=== PATIENT | male | born 1955 | race Caucasian/White ===

== ENCOUNTER → 2018-08-22 | Outpatient (CLI) | payer MEDICAID | LOC: RADMRIMAIN 14:54 | PROVIDERS: ATTEND Internal Medicine | DX: M50.30 Other cervical disc degeneration, unspecified cervical region (principal) | CPT/HCPCS: 82565 ==

== ENCOUNTER → 2018-08-24 | Outpatient (CLI) | payer MEDICAID ==
--- NOTE | 2018-08-25 10:30 | MR ---
EXAMINATION TYPE: MR cervical spine wo/w con DATE OF EXAM: 08/24/2018 COMPARISON: CT cervical spine 12/31/2012 HISTORY: Neck Pain, Lack of Mobility, Previous Surgery 13 years ago Gadavist 10ml TECHNIQUE: Multiplanar, multisequence images of the cervical spine were acquired utilizing 10 mL intravenous Shin avist gadolinium contrast. Diffusion weighted imaging was performed. C2-C3: No significant spinal stenosis or sizable disc herniation. Mild right-sided foraminal encroach ment is present due to facet arthropathy and uncovertebral joint hypertrophy on the right. C3-C4: Uncovertebral joint hypertrophy and facet arthropathy results in foraminal encroachment bilate rally right greater than left. Posterior extension of endplate disc complex is results in moderate to severe central canal stenosis, there is minimal anterolisthesis grade 1 C3-4. C4-C5: Bilateral uncovertebral joint hypertrophy is noted, facet arthropathy somewhat worse on the ri ght resulting in bilateral foraminal encroachment. Posterior extension endplate disc complex causes m oderate central canal stenosis. C5-C6: There is obliteration of the disc space to the patient's fusion, no significant central stenos is or foraminal encroachment C6-C7: No significant central stenosis. There is some bilateral foraminal encroachment. No disc herni ation. C7-T1: No evidence for degenerative disc disease. No disc bulge/herniation or protrusion. No Canal stenosis. Foramina are patent bilaterally. Cervical segments are intact. Patient is status post anterior cervical fusion, discectomy at C5-C7, there is susceptibility artifact due to patient's hardware. There is near normal alignment. Cervical spinal cord show some increased signal on T2-weighted sequences to the left of midline at C3-4 axial image 37, corresponding low signal on T1-weighted images. Craniovertebral junction relationships ar e within normal limits. No abnormal enhancement following contrast administration. 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 Postop changes. There is multilevel foraminal encroachment . Spinal stenosis present C3-4, C4-5.
== END | disposition home or self-care (01) ==
LOC: RADMRIMAIN 09:35
PROVIDERS: ATTEND Internal Medicine
DX: M48.02 Spinal stenosis, cervical region (principal); G95.89 Other specified diseases of spinal cord; Z98.890 Other specified postprocedural states
CPT/HCPCS: 72156; A9585

== ENCOUNTER → 2019-01-15 | Outpatient (CLI) | payer MEDICARE, BC, OTHER ==
--- NOTE | 2019-01-15 14:15 | XR ---
EXAMINATION TYPE: XR cervical spine limited DATE OF EXAM: 01/15/2019 TECHNIQUE: Frontal, lateral, and open mouth view of the cervical spine are obtained. HISTORY: M48.02 COMPARISON: MRI cervical spine August 24, 2018 FINDINGS: The cervical spine is visualized in its entirety from C1 thru the inferior C7 level, it is stable and satisfactory in alignment without evidence of acute fracture or dislocation. The pre-dmitri tebral soft tissue show some prominence perhaps mildly thickened up to 22 mm at C6 level. The C1-C2 articulation shows redemonstrates asymmetric left-sided narrowing on open mouth view. There is new an terior fusion plate C3-C5 levels. Artificial disc material at these levels is now present. There is p ersistent artificial disc material C5-C6 and C6-C7 level with some ossific fusion. Interval removal a nterior fusion plate is noted. IMPRESSION: As above.
== END | disposition home or self-care (01) ==
LOC: RADXRMAIN 13:44
DX: M48.02 Spinal stenosis, cervical region (principal); M43.22 Fusion of spine, cervical region
CPT/HCPCS: 72040

== ENCOUNTER → 2019-05-08 | Outpatient (CLI) | payer MEDICARE, BC ==
--- NOTE | 2019-05-08 14:23 | CT ---
EXAMINATION TYPE: CT abdomen pelvis wo con DATE OF EXAM: 05/08/2019 COMPARISON: 05/08/2019 earlier exam INDICATION: right flank pain DLP: 480880 mGycm, Automated exposure control for dose reduction was used. CONTRAST: 0 mL of Isovue 300. Study performed with Oral Contrast TECHNIQUE: Axial images were obtained from above the diaphragm to the pubic rami in the axial plane a t 5 mm thick sections. Reconstructed images are reviewed on the computer in the coronal plane. FINDINGS: Limited CT sections are obtained the lung bases. The lung bases are clear. CT ABDOMEN: Liver: Normal Spleen: Normal Pancreas: Normal Adrenal glands: The adrenal glands are normal. Gallbladder: Normal Kidneys: No masses are evident. No hydronephrosis is present. No cysts are present. Delayed images were obtained through the kidneys, which remain unremarkable. There is a 0.5 cm distal right uretera l stone. Mild left hydronephrosis is present. Aorta: Vascular calcification is within the aorta. Inferior vena cava: Normal. CT PELVIS: Loops of bowel within the abdomen and pelvis are normal. There are loops of bowel which are incom pletely distended or lack oral contrast limiting their evaluation. Appendix: Not identified. No suspicious tubular structures or inflammatory changes are evident. Urinary bladder: There is thickening in the urinary bladder wall. There is incomplete distention. Genitourinary structures: Prostate is mildly prominent. Osseous structures: No suspicious lytic or sclerotic lesions. IMPRESSIONS: 1. A distal right nonobstructing ureteral stone measuring 0.5 cm felt to be present. 2. Mild fecal retention
--- NOTE | 2019-05-08 14:53 | CT ---
EXAMINATION TYPE: CT ChestAbdPelvis w con DATE OF EXAM: 05/08/2019 INDICATION: RUQ pain, pleurodynia COMPARISON: 05/08/2019 CT DLP: 1643.83 mGycm CONTRAST: Performed with Oral Contrast and with IV Contrast, patient injected with 100 mL of Isovue 300. TECHNIQUE: Axial images at 5 mm thick sections. Reconstructed images in the coronal plane. Delayed images through the kidneys. FINDINGS: CT CHEST: Portion of the thyroid visualized is normal. No suspicious lung nodules or focal infiltrates are present. No enlarged mediastinal or hilar adenopathy is evident. The ascending aorta diameter at the level of the main pulmonary artery is 3.8 cm. The main pulmonary artery diameter at the bifurcation is 2.[address] ABDOMEN: Liver: Normal Spleen: Normal Pancreas: Normal Adrenal glands: The adrenal glands are normal. Gallbladder: Normal Kidneys: No masses are evident. No hydronephrosis is present. No cysts are present. Delayed images were obtained through the kidneys, which remain unremarkable. Aorta: Vascular calcification is within the aorta. Inferior vena cava: Normal. CT PELVIS: Loops of bowel within the abdomen and pelvis are normal. There are some loops of bowel is limited contrast limiting their evaluation. Mild fecal retention is present. Appendix: Normal as visualized and extending towards the midline.. Urinary bladder: There is thickening of the urinary bladder wall. There is incomplete distention Genitourinary structures: Prostate is somewhat prominent. Osseous structures: No suspicious lytic or sclerotic lesions. IMPRESSIONS: 1. Mild fecal retention. 2. There may be a distal right ureteral stone measuring 0.5 cm.
== END | disposition home or self-care (01) ==
LOC: RADCTMAIN 07:30
PROVIDERS: ATTEND Internal Medicine
DX: N20.1 Calculus of ureter (principal); K59.00 Constipation, unspecified
CPT/HCPCS: 82565; 84520; 71260; 74176; 74177; Q9967 ×2

== ENCOUNTER → 2019-05-21 | Outpatient (CLI) | payer MEDICARE, BC ==
--- NOTE | 2019-05-21 14:37 | MR ---
EXAMINATION TYPE: MR lumbar spine wo con DATE OF EXAM: 05/21/2019 COMPARISON: CT of the chest, abdomen, and pelvis dated 05/08/2019 HISTORY: Low back pain TECHNIQUE: Multiplanar, multisequence images of the lumbar spine were acquired. Osseous findings: The lumbar spine vertebral bodies maintain normal vertebral body heights and alignm ent. Bone marrow signal is overall within normal limits. There is minimal retrolisthesis of L5 on S1. Multilevel disc desiccation is noted. Conus medullaris is unremarkable terminating at L1-L2. L1-L2: Disc desiccation is seen without spinal canal stenosis or neural foraminal narrowing. L2-L3: There is a broad-based disc bulge and pronounced right facet arthropathy resulting in moderate right neural foraminal narrowing and mild left neural foraminal narrowing. Disc bulges right eccentr ic. Ligamentum flavum buckling is also seen. There is some impression on the posterior thecal sac and mild spinal canal stenosis created by the pronounced right facet arthropathy and focal ligamentum fl avum buckling. L3-L4: Mild facet arthropathy and mild ligamentum flavum buckling as well as a broad-based disc bulge resulting in mild bilateral neural foraminal narrowing without spinal canal stenosis. L4-L5: Broad-based disc bulge, ligamentum flavum buckling, and facet arthropathy contribute to modera te spinal canal stenosis and moderate to severe left neural foraminal narrowing as well as moderate r ight neural foraminal narrowing. Pronounced facet arthropathy abuts the exiting L4 nerve root on the left in the neural foramen. L5-S1: There is a very small central disc herniation and broad-based disc bulge as well as facet arth ropathy resulting in moderate bilateral neural foraminal narrowing without spinal canal stenosis. IMPRESSION: 1. Severe facet arthropathy on the right at L2-L3 and bilaterally at L4-5 with ligamentum flavum fischer ling and broad-based disc bulges contributing to moderate spinal canal stenosis at L4-L5 and mild spi nal canal stenosis at L2-L3. There is also moderate to severe left neural foraminal narrowing at L4-L 5 with the pronounced facet arthropathy contacting the exiting L4 nerve root. Variable degrees of sophy ral foraminal narrowing age level are detailed above. 2. Very small central disc herniation at L5-S1 without spinal canal stenosis. 3. Mild retrolisthesis of L5 on S1.
== END ==
LOC: RADMRIMAIN 10:59
PROVIDERS: ATTEND Orthopaedic Surgery
DX: M48.061 Spinal stenosis, lumbar region without neurogenic claudication (principal); M51.27 Other intervertebral disc displacement, lumbosacral region; M51.26 Other intervertebral disc displacement, lumbar region; M43.17 Spondylolisthesis, lumbosacral region; M43.16 Spondylolisthesis, lumbar region; M46.96 Unspecified inflammatory spondylopathy, lumbar region
CPT/HCPCS: 72148

== ENCOUNTER → 2019-05-29 | Outpatient (CLI) | payer MEDICARE, BC ==
[2019-05-29 08:45] VITALS: BP 123/79; PULSE 59; RESP 16
--- NOTE | 2019-05-29 09:11 | P.PAINCN ---
History of Present Illness - Reason for Consult Consult date: 05/29/19 - History of Present Illness this is the initial consultation visit for this 64 years old male, with a chronic history of severe low back pain with radiation to the right hip ,and right lower extremity, associated with numbness and tingling sensation, the symptoms started 10 years ago while he was playing tennis, he continued to have symptoms that the intensity of the pain increased over the last few months, he denies any change in the more movement or urination, he denies any fever or night sweats , he denies any motor deficit, he is able to ambulate freely, also patient had neck pain problem and he had cervical fusion surgery 2, but currently most of his problem is that the low back area Past Medical History Past Medical History: Hypertension Additional Past Medical History / Comment(s): gout,rt kidney stone,steroid injection May 2019 History of Any Multi-Drug Resistant Organisms: None Reported Past Surgical History: Orthopedic Surgery Additional Past Surgical History / Comment(s): cervical fusion x2 and wrist Past Anesthesia/Blood Transfusion Reactions: No Reported Reaction Smoking Status: Former smoker - Past Family History Mother Family Medical History: No Reported History Sister(s) Family Medical History: Cancer Additional Family Medical History / Comment(s): small cell lung CA Medications and Allergies Home Medications Medication Instructions Recorded Confirmed Type HYDROcodone/APAP 10-325MG [[place] 1 tab PO TID PRN 05/27/19 05/27/19 History 10-325] Indomethacin 50 mg PO DAILY PRN 05/27/19 05/27/19 History Irbesartan [Avapro] 150 mg PO DAILY 05/27/19 05/27/19 History Allergies Allergy/AdvReac Type Severity Reaction Status Date / Time No Known Allergies Allergy Unverified 05/27/19 14:55 Physical Exam Vitals: Vital Signs Pulse Resp BP Pulse Ox 05/29/19 08:36 59 L 16 123/79 98 REVIEW OF ORGAN SYSTEMS: CONSTITUTIONAL: No fevers or chills. No recent weight loss. EYES: no History of troubles with vision. No glasses. HEENT: No difficulties with hearing. No nosebleeds. No difficulty swallowing. RESPIRATORY: Past pneumonia. Denies any troubles with breathing or dyspnea on exertion. CARDIOVASCULAR: Denies any chest pain, palpitations, or recent heart attacks. GASTROINTESTINAL: Denies fatty food intolerance. Has change in bowel habits and gas bloat. GENITOURINARY: Denies any blood in urine. Has increased urinary frequency. NEUROLOGICAL: numbness and tingling along the right lower extremity. No seizure disorders or headaches. MUSCULOSKELETAL: Has back pain. SKIN: Past t skin cancer. No rash. PSYCHIATRIC: Denies current depression or suicidal thoughts. ENDOCRINE: Denies current thyroid disorders. Denies any blood sugar glucose intolerance. HEME/LYMPHATIC: Denies any lumps and bumps around the neck. History of deep venous thrombosis. ALLERGY/IMMUNOLOGY: No immunoglobulin therapy. No immune deficiencies. BREAST: Denies current breast lumps, pain or nipple discharge. Physical Examinations : Constitutiona : Cooperative , not in acute distress . HEENT : nech : supple , no Lymphadenopathy , normal thyroid size . eyes : no ptosis , no icterus, no photophobia . ENT : normal of hearing , normal oropharynx , no Thrush . neurologic : Cranial nerve II to XII intact , no focal neurological deffecit . psychatric : alert , oriented X 3 , appropriate affect , intact judgment and insight . Lymphatic : no Lymphadenopathy . musculoskeltal : Cervical Spine motor stregnth in the deltoid and biceps, normal right side , normal Left side motor stregnth biceps and the wrist extensors normal right side ,normal left side . motor stregnth in the triceps muscle . normal Right side , normal Left side Lumber spine moter stegnth lower extremities ,thigh and legs 5/5 Right side , 5/5 Left side Positive paresthesia right lower extremity(L3 ,4 ,5 dermatomal distribution ) deep tendon reflexes : normal Knee Jerk , normal ankle Jerk lumber facet Loading Test = negative bilaterally Range of motion of the lumbar spine Flexion 30 degrees, extension 10 degrees strait leg raising test = negative bilaterally Fabere test negative bilaterally. Results Comments: MRI of the lumbar spine done on 05/21/2019 at [facility]= multilevel lumbar facet arthropathy and spinal canal stenosis at L4 5 and disc herniation at L5-S1, Assessment and Plan Plan: Assessment and plan=1 lumbar radiculopathy. 2-lumbar herniated disc disease. 3- lumbar spondylosis with lumbar facet arthropathy. Patient could benefit from lumbar epidural steroid injection under fluoroscopy guidance right-sided paramedian approach At L4 5 or L5-S1 . 2-postlaminectomy pain syndrome and cervical area. Patient should continue to use his pain medication [place] 10/325 and is getting prescription refills from his primary care Time with Patient: Greater than 30 PQRS Measure Charge Sheet Measure #130: Documentation of Current Meds in Medical Chart: Patient's m edications documented in chart Measure #226: Tobacco Use: Screen & Cessation Intervention: Pt not a tobacco user Measure #111: Pneumonia Vaccination: Pneumococcal vaccine NOT administered or previously given Measure #47: Advance Care Plan: Advance care planning discussed & documented, pt chose/unable to give Measure #412: Opioid Treatment Agreement: No documentation of signed opioid treatment agreement Measure #408: Opioid Therapy Follow-up Evaluation: Patient had NO f/u eval minimum every 3 months during opioid therapy Measure #317: Preventitive Care & Scrn High Bld Press & F/U: Normal blood pressure, f/u not required Measure #128: Body Mass Index (BMI) Screening & Follow-up: BMI documented ABOVE normal parameters - f/u documented Measure #131: Pain Assessment & Follow-up: Pain positive & plan documented, Follow-up scheduled Measure #431: Unhealthy Alcohol Use Preventative Care & Scrn: Patient not identified as an unhealthy alcohol user PQRS Narrative: Smoking Status Former smoker Blood Pressure 123/79 Pain Intensity [Back] 3 Scale Used Numeric (1 - 10) Hx Alcohol Use (MH) Yes Home Medications: Ambulatory Orders HYDROcodone/APAP 10-325MG [[place] 10-325] 1 tab PO TID PRN 05/27/19 Indomethacin 50 mg PO DAILY PRN 05/27/19 Irbesartan [Avapro] 150 mg PO DAILY 05/27/19
== END | disposition home or self-care (01) ==
LOC: PNWHC3 08:27
PROVIDERS: ATTEND Specialist
DX: M51.16 Intervertebral disc disorders with radiculopathy, lumbar region (principal); M46.96 Unspecified inflammatory spondylopathy, lumbar region; M96.1 Postlaminectomy syndrome, not elsewhere classified; Z79.891 Long term (current) use of opiate analgesic; Z87.891 Personal history of nicotine dependence; Z79.899 Other long term (current) drug therapy
CPT/HCPCS: 99211

== ENCOUNTER 2019-06-09 08:31 | Day surgery (SDC) | payer MEDICARE, BC ==
[2019-06-05 12:44] VITALS: BMI 28.8
[~2019-06-09 08:31] MED LIST: LACTATED RINGERS 1,000 ML IV SCH
[2019-06-09 08:50] VITALS: TEMP 98.2
[2019-06-09] MEDS ORDERED: LIDOCAINE 1% 20 ML VIAL (10MG/ML) FOR IV START INTRADERMA ONE (08:55)
--- NOTE | 2019-06-09 09:40 | P.PCN ---
Date of Procedure: 06/09/19 Procedure(s) Performed: PREOPERATIVE DIAGNOSIS: 1- Lumbar Herniated Disc Diseases 2-Lumbar spondylosis with Facet arthropathy without myelopathy. 3-lumbar radiculopathy. POSTOPERATIVE DIAGNOSIS: 1-Lumber herniated Disc Diseases 2-Lumbar spondylosis with Facet arthropathy without myelopathy 3-lumbar radiculopathy PROCEDURE 1. Lumbar epidural steroid injection under fluoroscopic guidance at the L5-S1 level.( Rt paramedian approach ) (Fluoroscopy imaging was available in radiology department) 2. Lumbar epidurogram. ANESTHESIA: Local with 1% lidocaine 3 ml and , moderate sedation with intravenous Versed 1 mg ,and fentanyle 50 Mcg EBL: Minimal PROCEDURE INDICATION: The patient with low back pain and radiculitis symptoms unresponsive to conservative treatment. Fluoroscopy was used to optimize visualization of the needle placement and to maximize safety. PROCEDURE DESCRIPTION / TECHNIQUE: The patient was seen and identified in the preoperative area. Risks, benefits, complications including but not limited to infections ,bleeding ,allergic reaction to the medications ,nerve damage and not complete pain releife , and alternatives were discussed with the patient. The patient agreed to proceed with the procedure and signed the consent. IV was started, and vital signs were stable. Patient was taken to the OR and time out was completed. The patient was placed in the prone position on procedure table and a pillow was placed under the abdomen to reduce lumbar lordosis. The lumbosacral area was prepped and draped in the usual sterile fashion.ere closely monitored during the procedure. Conscious sedation was used during the procedure to decrease patients anxiety. Vital signs was monitered during the entire procedure. Using anterior-posterior fluoroscopy, the L5-S1 interlaminar space was identified and the skin over this site was marked and then infiltrated with 1% lidocaine subcutaneously. Subsequently, a 20-gauge Tuohy epidural needle was inserted and advanced toward the epidural space using the ``Loss of resistance technique and guided by AP and lateral fluoroscopy. The correct needle position in the epidural space was verified with the injection of 2 mL of the water soluble contrast dye Isovue 200 contrast and observing an excellent epidurogram with the epidural spread of the dye, after negative aspiration for blood and CSF and in the absence of paresthesias. Again after negative aspiration, a 6 ml mixture containing 80 mg of Depo-medrol , and 2 ml of preservative free Normal Saline, and 2 ml of preservative free lidocaine 1% solution was injected and a washout of epidurogram was seen. Needle was withdrawn intact, skin was cleansed, and bandages were applied. COMPLICATIONS: None DISPOSITION / PLANS: The patient was placed in a supine position and transferred to the recovery area in a stable condition for observation. There was no evidence of lower extremity motor or sensory deficit after the procedure. Patient was discharged from the recovery room after meeting discharge criteria. Home discharge instructions were given to the patient by the staff. The patient was reexamined prior to discharge. The patient will schedule a follow up in the clinic in 2-4 weeks.
[2019-06-09] MEDS ORDERED: IV FLUID CONTINUATION 1,000 ML IV ONE ×2 (09:50)
[2019-06-09 09:53] VITALS: RESP 18
--- NOTE | 2019-06-09 10:08 | FL ---
Fluoroscopy HISTORY: Pain 3 seconds fluoroscopy time supplied to the referring clinician. 1 intraoperative C-arm images docume nt the procedure. See dictated report from anesthesia.
[2019-06-09 10:24] VITALS: BP 120/75; PULSE 50
== END 2019-06-09 10:30 | disposition home or self-care (01) ==
LOC: ORPAIN 08:31
PROVIDERS: ATTEND Specialist
DX: M47.26 Other spondylosis with radiculopathy, lumbar region (principal); M51.16 Intervertebral disc disorders with radiculopathy, lumbar region; Z98.890 Other specified postprocedural states
CPT/HCPCS: 62323; J2250; J1030; J3010; Q9966

== ENCOUNTER 2019-06-23 07:31 | Day surgery (SDC) | payer MEDICARE, BC ==
[2019-06-20 10:55] VITALS: BMI 28.8
[2019-06-23 07:49] VITALS: RESP 16; TEMP 97.2
--- NOTE | 2019-06-23 08:24 | P.PCN ---
Date of Procedure: 06/23/19 Procedure(s) Performed: PREOPERATIVE DIAGNOSIS: 1- Lumbar Herniated Disc Diseases 2-Lumbar spondylosis with Facet arthropathy without myelopathy. 3-lumbar radiculopathy. POSTOPERATIVE DIAGNOSIS: 1-Lumber herniated Disc Diseases 2-Lumbar spondylosis with Facet arthropathy without myelopathy 3-lumbar radiculopathy PROCEDURE 1. Lumbar epidural steroid injection under fluoroscopic guidance at the L5-S1 level. (Fluoroscopy imaging was available in radiology department) 2. Lumbar epidurogram. ANESTHESIA: Local with 1% lidocaine 3 ml and , moderate sedation with intravenous Versed 1 mg ,and fentanyle 50 Mcg EBL: Minimal PROCEDURE INDICATION: The patient with low back pain and radiculitis symptoms unresponsive to conservative treatment. Fluoroscopy was used to optimize visualization of the needle placement and to maximize safety. PROCEDURE DESCRIPTION / TECHNIQUE: The patient was seen and identified in the preoperative area. Risks, benefits, complications including but not limited to infections ,bleeding ,allergic reaction to the medications ,nerve damage and not complete pain releife , and alternatives were discussed with the patient. The patient agreed to proceed with the procedure and signed the consent. IV was started, and vital signs were stable. Patient was taken to the OR and time out was completed. The patient was placed in the prone position on procedure table and a pillow was placed under the abdomen to reduce lumbar lordosis. The lumbosacral area was prepped and draped in the usual sterile fashion.ere closely monitored during the procedure. Conscious sedation was used during the procedure to decrease patients anxiety. Vital signs was monitered during the entire procedure. Using anterior-posterior fluoroscopy, the L5-S1 interlaminar space was identified and the skin over this site was marked and then infiltrated with 1% lidocaine subcutaneously. Subsequently, a 20-gauge Tuohy epidural needle was inserted and advanced toward the epidural space using the ``Loss of resistance technique and guided by AP and lateral fluoroscopy. The correct needle position in the epidural space was verified with the injection of 2 mL of the water soluble contrast dye Isovue 200 contrast and observing an excellent epidurogram with the epidural spread of the dye, after negative aspiration for blood and CSF and in the absence of paresthesias. Again after negative aspiration, a 6 ml mixture containing 80 mg of Depo-medrol , and 2 ml of preservative free Normal Saline, and 2 ml of preservative free lidocaine 1% solution was injected and a washout of epidurogram was seen. Needle was withdrawn intact, skin was cleansed, and bandages were applied. COMPLICATIONS: None DISPOSITION / PLANS: The patient was placed in a supine position and transferred to the recovery area in a stable condition for observation. There was no evidence of lower extremity motor or sensory deficit after the procedure. Patient was discharged from the recovery room after meeting discharge criteria. Home discharge instructions were given to the patient by the staff. The patient was reexamined prior to discharge. The patient will schedule a follow up in the clinic in 2-4 weeks.
--- NOTE | 2019-06-23 08:35 | FL ---
EXAMINATION TYPE: FL guided pain mgmt statistic DATE OF EXAM: 06/23/2019 HISTORY: Pain LUMBAR EPIDURAL, 2 SEC FL, DR. LARA
[2019-06-23 08:45] VITALS: BP 129/78; PULSE 60
[2019-06-23] MEDS ORDERED: IV FLUID CONTINUATION 1,000 ML IV ONE (08:48)
== END 2019-06-23 09:19 | disposition home or self-care (01) ==
LOC: ORPAIN 07:31
PROVIDERS: ATTEND Specialist
DX: M51.16 Intervertebral disc disorders with radiculopathy, lumbar region (principal); M47.26 Other spondylosis with radiculopathy, lumbar region; M40.46 Postural lordosis, lumbar region
CPT/HCPCS: 62323; J2250; J1030; J3010; Q9966

== ENCOUNTER → 2019-07-08 | Outpatient (CLI) | payer MEDICARE, BC ==
[2019-07-08 13:51] VITALS: BP 150/82; PULSE 66; RESP 18
--- NOTE | 2019-07-09 13:56 | P.PAINPG ---
Subjective Progress Note Date: 07/08/19 This is a follow-up visit for this 64 years old male with a chronic history of low back pain is diagnosed with lumbar radiculopathy lumbar herniated disc disease, and lumbar spondylosis with lumbar facet arthropathy, status post lumbar epidural steroid injections 2, patient reported that his low back pain improved significantly after the procedure, and currently is complaining of severe midback pain, which is increasing in intensity over the last few weeks, the pain is constant and increases with any movement, interfering with the quality of life, he denies any motor or sensory deficit he denies any fever or night sweats and there is no change in the bowel movement or urination Objective - Vital Signs Vital signs: Vital Signs Temp Pulse 66 07/08/19 13:41 Resp 18 07/08/19 13:41 BP 150/82 07/08/19 13:41 Pulse Ox 99 07/08/19 13:41 Intake & Output 07/08/19 07/09/19 07/09/19 18:59 06:59 18:59 Weight 86.636 kg - Exam Physical Examinations : -Constitutiona : Cooperative , not in acute distress . -HEENT : nech : supple , no Lymphadenopathy , normal thyroid size . : eyes : no ptosis , no icterus, no photophobia . : ENT : normal of hearing , normal oropharynx , no Thrush . - Respiratory : Chest clear to auscultations Bilaterally , no wheezing , no Rhonchi . - Cardiovascula : regular rate and rhythem , S1 , S2 , no S3 , no S4. - Gastrointestina : abdomen soft no tenderness , bowel sounds , no organomegally . - Genitourinary : Defferred . - neurologic : Cranial nerve II to XII intact , no focal neurological deffecit . -psychatric : alert , oriented X 3 , appropriate affect , intact judgment and insight . -Lymphatic : no Lymphadenopathy . - musculoskeltal : Cervical Spine motor stregnth in the deltoid and biceps, normal right side , normal Left side motor stregnth biceps and the wrist extensors normal right side ,normal left side . motor stregnth in the triceps muscle . normal Right side , normal Left side Thoracic spine= flexion and extension and lateral rotation of the torso associated with severe pain Facet loading test positive bilaterally thoracic area from T78 to T12 Lumber spine moter stegnth lower extremities ,thigh and legs 5/5 Right side , 5/5 Left side Assessment and Plan Plan: Assessment and plan= lumbar radiculopathy, lumbar herniated disc disease, lumbar spondylosis pain improved after lumbar epidural steroid injection. 2.mid Back pain secondary to THORACIC spondylosis versus thoracic herniated disc disease, we will order a thoracic spine MRI To identify the etiology,, patient will follow up in the pain clinic in 1-2 weeks(after we get the MRI report ) Time with Patient: Less than 30 PQRS Measure Charge Sheet Measure #130: Documentation of Current Meds in Medical Chart: Patient's medications documented in chart Measure #226: Tobacco Use: Screen & Cessation Intervention: Pt not a tobacco user Measure #111: Pneumonia Vaccination: Pneumococcal vaccine NOT administered or previously given Measure #47: Advance Care Plan: Advance care planning discussed & documented, pt chose/unable to give Measure #412: Opioid Treatment Agreement: No documentation of signed opioid treatment agreement Measure #408: Opioid Therapy Follow-up Evaluation: Patient had NO f/u eval minimum every 3 months during opioid therapy Measure #317: Preventitive Care & Scrn High Bld Press & F/U: Pre-hypertensive or hypertensive BP documented, pt will f/u with PCP Measure #128: Body Mass Index (BMI) Screening & Follow-up: BMI documented ABOVE normal parameters - f/u documented Measure #131: Pain Assessment & Follow-up: Pain positive & plan documented, Follow-up scheduled Measure #431: Unhealthy Alcohol Use Preventative Care & Scrn: Patient not identified as an unhealthy alcohol user PQRS Narrative: Smoking Status Former smoker Blood Pressure 150/82 Pain Intensity [Right Lower 1 Back] Pain Intensity [Bilateral 4 Upper Back] Pain Intensity [None] 0 Scale Used Numeric (1 - 10) Hx Alcohol Use (MH) Yes Home Medications: Ambulatory Orders HYDROcodone/APAP 10-325MG [[place] 10-325] 1 tab PO TID PRN 05/27/19 Indomethacin 50 mg PO DAILY PRN 05/27/19 Irbesartan [Avapro] 150 mg PO DAILY 05/27/19 Controlled Substance Measures - Controlled Substance Measures Is patient prescribed a controlled substance at discharge?: No
== END | disposition home or self-care (01) ==
LOC: PNWHC3 13:11
PROVIDERS: ATTEND Specialist
DX: G89.29 Other chronic pain (principal); M51.16 Intervertebral disc disorders with radiculopathy, lumbar region; M47.26 Other spondylosis with radiculopathy, lumbar region; M46.96 Unspecified inflammatory spondylopathy, lumbar region; Z87.891 Personal history of nicotine dependence; Z79.899 Other long term (current) drug therapy
CPT/HCPCS: 99211

== ENCOUNTER → 2019-07-22 | Outpatient (CLI) | payer MEDICARE, BC ==
--- NOTE | 2019-07-22 09:04 | MR ---
EXAMINATION TYPE: MR thoracic spine wo con DATE OF EXAM: 07/22/2019 7:56 AM COMPARISON: CT thoracic spine 12/31/2012 HISTORY: Thoracic spondylosis Multiplanar MultiSpin echo imaging of the thoracic spine was performed. Disc spaces: Mild disc desiccation extending from T4-5 through T9-T10. Posterior disc bulge greatest at T6-7 and T7-8 with mild effacement of the ventral thecal sac at each level. No evidence for drew disc herniation or central stenosis. No cord contact identified. Spinal canal: No evidence for canal stenosis. No intrinsic or extrinsic lesion. Thoracic spinal cord: Thoracic spinal cord is of normal caliber and signal. Paraspinal soft tissues: No evidence for paraspinal mass. No destructive lesions seen. Vertebral segments: No evidence for acute fracture or bony lesion. Incidental T11 hemangioma. Minimal loss of height of T4 compatible with the previous fracture noted in 2012. Appropriate healing noted. IMPRESSION: 1. Multilevel degenerative disc disease with disc bulging as discussed above. No evidence for herniat ion or central stenosis. Thoracic spinal cord is of normal signal.
== END | disposition home or self-care (01) ==
LOC: RADMRIMAIN 07:02
PROVIDERS: ATTEND Specialist
DX: M51.84 Other intervertebral disc disorders, thoracic region (principal); M51.34 Other intervertebral disc degeneration, thoracic region
CPT/HCPCS: 72146

== ENCOUNTER → 2019-07-31 | Outpatient (CLI) | payer MEDICARE, BC ==
[2019-07-31 14:30] VITALS: BP 151/90; PULSE 62; RESP 16
--- NOTE | 2019-07-31 21:34 | P.PAINPG ---
Subjective Progress Note Date: 07/31/19 This is a follow-up visit for this 64 year old male with a chronic history of low back pain is diagnosed with lumbar radiculopathy lumbar herniated disc disease, and lumbar spondylosis with lumbar facet arthropathy, status post lumbar epidural steroid injections 2, patient reported that his low back pain improved after the procedure, and at last visit, he was complaining of midback pain, radiating to bilateral chest wall which began after he was on a hunting trip and transported a heavy deer in the snow by himself; he underwent a thoracic MRI, results below. He is here for followup. Today, he reports his mid- back pain is rated at 3/10; he also complains of RLE numbness and tingling, which he thinks is worsening. He also has RUE numbness, which has been present for a long time; since his cervical spine fusion surgery. He has not been on any neuropathic agents in the past; currently taking low dose narcotics prescribed by PCP. He reports good benefit from these medications and they are helping him function. Denies side effects. He has recently starting doing aquatherapy with good benefit and also continues to do home exercises. He is leaving next week to [place] with his for 3 months. ROS is negative for new onset weakness, bowel/bladder dysfunction, suicidal or homicidal ideation, chest pain, SOB, fevers, chills, night sweats. Objective Vitals reviewed in EMR - Exam Physical Examinations : -Constitutional : Cooperative , not in acute distress . -HEENT : neck : supple , no Lymphadenopathy , normal thyroid size . : eyes : no ptosis , no icterus, no photophobia . : ENT : normal of hearing , normal oropharynx - Respiratory : no wheezing - Cardiovascular : no pedal edema - Gastrointestinal : abdomen non-distended - Genitourinary : Deferred . - neurological : Cranial nerve II to XII intact , no focal neurological deficit . -psychiatric : alert , oriented X 3 , appropriate affect , intact judgment and insight . - musculoskeltal : Cervical Spine motor strength in the deltoid and biceps, normal right side , normal Left side motor strength biceps and the wrist extensors normal right side ,normal left side . motor strength in the triceps muscle . normal Right side , normal Left side Thoracic spine= flexion and extension and lateral rotation of the torso associated with pain Facet loading test positive bilaterally thoracic area from T8 to T12 with TTP in this area Lumber spine motor strength lower extremities ,thigh and legs 5/5 Right side , 5/5 Left side Sensation reduced to light touch diffusely in RLE MRI thoracic spine done at [facility] on 07/22/2019 shows mild disc dessication from T4-5 through T9-10. Posterior disc bulge greatest at T6-7 and T7-8 with no central canal stenosis. Minimal height loss of T4 d/t old Fx, well healed. Assessment and Plan Plan: Assessment and plan= 1. lumbar radiculopathy, lumbar herniated disc disease, lumbar spondylosis pain improved after lumbar epidural steroid injection, with residual sensory deficit in RLE. 2.mid Back pain secondary to THORACIC spondylosis, mild thoracic degenerative disc disease 3. History of C spine fusion We had a lengthy discussion regarding possible treatment options including medications, pain procedures and surgery. He is not interested in surgery at this time. I believe he would benefit from a neuropathic agent such as gabapentin given his multiple sensory complaints. As he has a narcotic agreement with his PCP, I asked him to have a discussion with his PCP regarding gabapentin. Would recommend starting at 300mg daily and increasing to TID over 2-3 weeks. Further dose increase would be warranted if good benefit form this dose. I encouraged continued aquatherapy and exercises. Follow up: PRN. If thoracic pain persists, he was instructed to call our clinic when he returns from [place] and we could consider thoracic facet workup. I also informed him that if PCP unable to prescribe gabapentin, I would be willing to prescribe it for him. Time with Patient: Less than 30 PQRS Measure Charge Sheet Measure #130: Documentation of Current Meds in Medical Chart: Patient's medications documented in chart Measure #226: Tobacco Use: Screen & Cessation Intervention: Pt not a tobacco user Measure #111: Pneumonia Vaccination: Pneumococcal vaccine NOT administered or previously given Measure #47: Advance Care Plan: Advance care planning discussed & documented, pt chose/unable to give Measure #412: Opioid Treatment Agreement: No documentation of signed opioid treatment agreement Measure #408: Opioid Therapy Follow-up Evaluation: Patient had NO f/u eval minimum every 3 months during opioid therapy Measure #317: Preventitive Care & Scrn High Bld Press & F/U: Pre-hypertensive or hypertensive BP documented, pt will f/u with PCP Measure #128: Body Mass Index (BMI) Screening & Follow-up: BMI documented within normal parameters Measure #131: Pain Assessment & Follow-up: Pain positive & plan documented, Follow-up as needed Measure #431: Unhealthy Alcohol Use Preventative Care & Scrn: Patient not identified as an unhealthy alcohol user Objective - Vital Signs Vital signs: Vital Signs Temp Pulse 62 07/31/19 14:17 Resp 16 07/31/19 14:17 BP 151/90 07/31/19 14:17 Pulse Ox 97 07/31/19 14:17 PQRS Measure Charge Sheet PQRS Narrative: Smoking Status Former smoker Blood Pressure 151/90 Pain Intensity [Back] 2 Scale Used Numeric (1 - 10) Hx Alcohol Use (MH) Yes Home Medications: Ambulatory Orders HYDROcodone/APAP 10-325MG [[place] 10-325] 1 tab PO TID PRN 05/27/19 Indomethacin 50 mg PO DAILY PRN 05/27/19 Irbesartan [Avapro] 150 mg PO DAILY 05/27/19 Tamsulosin [Flomax] 0.4 mg PO DAILY 07/29/19 Controlled Substance Measures - Controlled Substance Measures Is patient prescribed a controlled substance at discharge?: No
== END | disposition home or self-care (01) ==
LOC: PNWHC3 13:35
PROVIDERS: ATTEND Anesthesiology
DX: G89.29 Other chronic pain (principal); M51.26 Other intervertebral disc displacement, lumbar region; M47.26 Other spondylosis with radiculopathy, lumbar region; M46.96 Unspecified inflammatory spondylopathy, lumbar region; M47.814 Spondylosis without myelopathy or radiculopathy, thoracic region; M51.34 Other intervertebral disc degeneration, thoracic region; Z98.1 Arthrodesis status; Z98.890 Other specified postprocedural states; Z79.899 Other long term (current) drug therapy
CPT/HCPCS: 99211

== ENCOUNTER → 2021-07-20 | Outpatient (CLI) | payer MEDICARE, BC ==
--- NOTE | 2021-07-20 12:07 | NM ---
EXAMINATION TYPE: NM stress cardiolite complete DATE OF EXAM: 07/20/2021 COMPARISON: NONE HISTORY: Chest pain, R07.89 TECHNIQUE: After the intravenous administration of 9.7 mCi Tc 99m Sestamibi - Rest images obtained 5 0 minutes post injection. The patient exercised using a SUHA protocol and 1 minute prior to peak e xercise was injected with 24.8 mCi Tc 99m Sestamibi - Stress images obtained 15 minutes post injectio n. FINDINGS: Targeted heart rate was achieved during performance of the study. Review of stress and rest SPECT sharon ges demonstrates no distinct perfusion abnormality. Gated analysis shows normal wall motion with an estimated left ventricular ejection fraction of 63 %. IMPRESSION: No scintigraphic evidence for reversible ischemia, consider correlation with echocardiographic evalua tion for possible elevated ejection fraction
--- NOTE | 2021-07-21 19:45 | P.STRESS ---
- Stress Test Note Stress Test Results/Findings: Exam Performed: NM stress cardiolite complete Exam Date: 07/20/21 Reason for Exam: CP Height: 5 ft 8 in Weight: 90.718 kg Protocol: CARDIOLITE STRESS Stage: 3 Duration of Exercise: 9:00 Resting Heart Rate: 66 Resting Blood Pressure: 146/77 Maximum Achieved Heart Rate: 140 Maximum Achieved Blood Pressure: 187/56 85% PMHR: 130 100% PMHR: 153 METS: 10.3 Technologist Comment: Stress Test Results/Findings: Patient exercised on a Jacky protocol for 9 minutes achieving a peak heart rate 140 beats a minute. Normal blood pressure response Baseline 12-lead EKG showed sinus rhythm with normal DC narrow QRS normal ST segments There was no ECG is ischemia No arrhythmias noted No symptoms noted Impression good exercise capacity without any evidence for ischemia or arrhythmia
--- NOTE | 2021-07-22 15:48 | EST ---
Stress Test Results/Findings: Exam Performed: NM stress cardiolite complete Exam Date: 07/20/21 Reason for Exam: CP Height: 5 ft 8 in Weight: 90.718 kg Protocol: CARDIOLITE STRESS Stage: 3 Duration of Exercise: 9:00 Resting Heart Rate: 66 Resting Blood Pressure: 146/77 Maximum Achieved Heart Rate: 140 Maximum Achieved Blood Pressure: 187/56 85% PMHR: 130 100% PMHR: 153 METS: 10.3 Technologist Comment: Stress Test Results/Findings: Patient exercised on a Jacky protocol for 9 minutes achieving a peak heart rate 140 beats a minute. Normal blood pressure response Baseline 12-lead EKG showed sinus rhythm with normal NV narrow QRS normal ST segments There was no ECG is ischemia No arrhythmias noted No symptoms noted Impression good exercise capacity without any evidence for ischemia or arrhythmia MTDD
== END | disposition home or self-care (01) ==
LOC: RADNMMAIN 07:34
PROVIDERS: ATTEND Family Medicine
DX: R07.89 Other chest pain (principal)
CPT/HCPCS: 93017; 78452; A9500

== ENCOUNTER 2022-02-24 09:17 | Emergency (ER) | payer MEDICARE ==
[2022-02-24] MEDS ORDERED: DEXAMETHASONE SOD PHOSPHATE 10 MG/ML 1 ML VIAL IM STA (09:41)
[2022-02-24] MEDS ORDERED: ORPHENADRINE 30 MG/ML 2 ML VIAL IM STA (09:41)
[2022-02-24 09:42] VITALS: TEMP 98.5
--- NOTE | 2022-02-24 09:50 | ED ---
Back Pain HPI - General Chief Complaint: Back Pain/Injury Stated Complaint: Hip and leg pain Time Seen by Provider: 02/24/22 09:31 Source: patient Limitations: no limitations - History of Present Illness Initial Comments: Patient is a 67-year-old male presenting with chief complaint of hip and back pain. Patient states that this is located mainly on the left side and has been present for the last 4 days. Patient states that there is pain with range of motion. He denies any injury. He has been taking Drummond 10 minutes with little relief. He denies any lower extremity weakness, numbness, tingling. He denies any loss of bowel or bladder control or saddle paresthesia. He admits to constipation. He denies any dysuria, hematuria, urgency, frequency. Denies any fever, chills, nausea, vomiting, abdominal pain, chest pain, shortness of breath. - Related Data Home Medications Medication Instructions Recorded Confirmed HYDROcodone/APAP 10-325MG [[place] 1 tab PO TID PRN 05/27/19 07/31/19 10-325] Indomethacin 50 mg PO DAILY PRN 05/27/19 07/31/19 Irbesartan [Avapro] 150 mg PO DAILY 05/27/19 07/31/19 Tamsulosin [Flomax] 0.4 mg PO DAILY 07/29/19 07/31/19 Previous Rx's Medication Instructions Recorded Cyclobenzaprine [Flexeril] 5 mg PO HS PRN #10 tab 02/24/22 methylPREDNISolone Dose Pack 4 mg PO DIRECTED #1 packet 02/24/22 [Medrol Dose Pack] Allergies Allergy/AdvReac Type Severity Reaction Status Date / Time No Known Allergies Allergy Verified 02/24/22 09:25 Review of Systems ROS Statement: Those systems with pertinent positive or pertinent negative responses have been documented in the HPI. ROS Other: All systems not noted in ROS Statement are negative. Past Medical History Past Medical History: Hypertension Additional Past Medical History / Comment(s): gout, rt kidney stone, back pain, steroid injection May 2019 History of Any Multi-Drug Resistant Organisms: None Reported Past Surgical History: Orthopedic Surgery Additional Past Surgical History / Comment(s): cervical fusion x2, and ORIF Rt wrist, Pain proc Past Anesthesia/Blood Transfusion Reactions: No Reported Reaction Past Psychological History: No Psychological Hx Reported Smoking Status: Never smoker Past Alcohol Use History: Occasional Past Drug Use History: None Reported - Past Family History Mother Family Medical History: No Reported History Sister(s) Family Medical History: Cancer Additional Family Medical History / Comment(s): Small cell lung CA. General Exam Limitations: no limitations General appearance: alert, in no apparent distress Head exam: Present: atraumatic, normocephalic, normal inspection Eye exam: Present: normal appearance, EOMI. Absent: scleral icterus, periorbital swelling Neck exam: Present: normal inspection Extremities exam: Present: normal inspection Back exam: Present: normal inspection. Absent: CVA tenderness (R), CVA tenderness (L), paraspinal tenderness, vertebral tenderness Neurological exam: Present: alert, oriented X3, CN II-XII intact Psychiatric exam: Present: normal affect, normal mood Skin exam: Present: warm, dry, intact, normal color. Absent: rash Course Vital Signs 02/24/22 02/24/22 02/24/22 09:23 09:39 11:50 Temperature 98 F 98.5 F Pulse Rate 71 76 72 Respiratory 20 16 18 Rate Blood Pressure 130/58 114/72 116/81 O2 Sat by Pulse 96 96 96 Oximetry Medical Decision Making - Medical Decision Making Patient is a 67-year-old male presenting with chief complaint of left hip and lower back pain. Pain has been present for the last 4 days, shoots down his leg and feels like a burning pain. His been taking Drummond 10 without much relief. No red flag symptoms. On examination there is no paraspinal muscle tenderness or vertebral tenderness. Patient has pain with range of motion and weightbearing. X-ray shows no acute fracture or dislocation, distal urinary calculus is seen that appears similar to previous exams. Patient sees urology and is currently taking Flomax. UA shows no blood or signs of infection. Patient is given pain medication and reports improvement in symptoms. He appears stable for discharge with outpatient follow-up at this time. Follow-up with PCP on Sunday. Report back to ER with any new or worsening symptoms. Discussed return parameters answered all questions. Patient conveyed verbal understanding and agreed to the plan. I discussed this case with my attending Dr. Molina. - Lab Data Lab Results 02/24/22 Range/Units 10:35 Urine Color Yellow Urine Appearance Clear (Clear) Urine pH 6.5 (5.0-8.0) Ur Specific Jean 1.025 (1.001-1.035) Urine Protein Trace H (Negative) Urine Glucose (UA) Negative (Negative) Urine Ketones Negative (Negative) Urine Blood Negative (Negative) Urine Nitrite Negative (Negative) Urine Bilirubin Negative (Negative) Urine Urobilinogen 3.0 (<2.0) mg/dL Ur Leukocyte Esterase Negative (Negative) Disposition Clinical Impression: Strain of lumbar region Disposition: HOME SELF-CARE Condition: Good Instructions (If sedation given, give patient instructions): Acute Low Back Pain (ED), Hip Pain (ED) Additional Instructions: Follow-up with PCP on Sunday. Report back to ER with any new or worsening symptoms. Take medication as prescribed. Prescriptions: Cyclobenzaprine [Flexeril] 5 mg PO HS PRN #10 tab PRN Reason: Spasms methylPREDNISolone Dose Pack [Medrol Dose Pack] 4 mg PO DIRECTED #1 packet Is patient prescribed a controlled substance at d/c from ED?: No Referrals: Hilaria Webb MD [Primary Care Provider] - 02/27/22 Time of Disposition: 11:17
--- NOTE | 2022-02-24 10:17 | XR ---
EXAMINATION TYPE: XR lumbar spine 2 or 3V DATE OF EXAM: 02/24/2022 10:09 AM INDICATION: Patient age:Male; 67 years old; Reason for study: pain; COMPARISON: CT abdomen pelvis 05/08/2019 TECHNIQUE: Frontal, lateral and coned in L5-S1 lateral views of the spine. FINDINGS: Mild multilevel disc degeneration changes with osteophyte formation of the endplates. No si gnificant loss of disc height. The vertebral body heights are maintained. Alignment is within normal limits. No evidence of any acute osseous pathology. No evidence of loss of vertebral body height is seen. There is normal alignment of the lumbar vertebral bodies. IMPRESSION: 1. No acute process. 2. Mild multilevel disc degeneration.
--- NOTE | 2022-02-24 10:19 | XR ---
EXAMINATION TYPE: XR Hip RT and AP Pelvis DATE OF EXAM: 02/24/2022 10:04 AM INDICATION: Patient age:Male; 67 years old; Reason for study: pain; COMPARISON: None. TECHNIQUE: The right hip was examined in the frontal and lateral projections and a AP pelvis. FINDINGS: Mild osteophyte formation of the acetabulum. Calcification seen projecting over the bladder lumen which in similar position to prior CT located within the distal ureter .No evidence of any acu te osseous pathology, joint dislocation, or soft tissue swelling. IMPRESSION: 1. No acute osseous pathology. 2. Mild right hip osteoarthrosis. 3. Similar right distal ureter calculus.
[2022-02-24 10:42] LABS: Appearance,Urine Clear (Clear); Bilirubin,Urine Negative (Negative); Blood,Urine Negative (Negative); Color,Urine Yellow; Glucose,Urine (UA) Negative (Negative); Ketones,Urine Negative (Negative); Leukocyte Esterase,Urine Negative (Negative); Nitrite,Urine Negative (Negative); PH, Urine 6.5 (5.0-8.0); Protein,Urine Trace (Negative); Specific Gravity,Urine 1.025 (1.001-1.035)
[2022-02-24] MEDS ORDERED: KETOROLAC 15 MG/ML 1 ML VIAL IM STA (10:51)
[2022-02-24 11:54] VITALS: BP 116/81; PULSE 72; RESP 18
== END 2022-02-24 11:54 | disposition home or self-care (01) ==
LOC: EC 09:17
DX: S39.012A Strain of muscle, fascia and tendon of lower back, initial encounter (principal); I10 Essential (primary) hypertension; X58.XXXA Exposure to other specified factors, initial encounter
CPT/HCPCS: 81003; 72100; 73502; 99283; 96372; J1100; J2360; J1885

== ENCOUNTER → 2023-01-29 | Outpatient (CLI) | payer MEDICARE ==
--- NOTE | 2023-01-29 08:11 | CT ---
EXAMINATION TYPE: CT brain wo con DATE OF EXAM: 01/29/2023 COMPARISON: 12/31/2012 HISTORY: Headaches and blurring vision. CT DLP: 1060.[address] of the brain was performed. The ventricles, basal cisterns and sulci overlying the cerebral convexities demonstrate mild enlargem ent. There is no evidence for intracranial hemorrhage or sulcal effacement. There is decreased attenuation about the periventricular white matter and deep white matter of both c erebral hemispheres, compatible with chronic small vessel ischemia. Differential diagnosis does inclu de demyelination. No mass effects are seen.No midline shift. Osseous calvarium is intact. If symptoms persist consider MRI. IMPRESSION: 1. Age related atrophic and chronic small vessel ischemic change without acute intracranial process s een at this time.
== END | disposition home or self-care (01) ==
LOC: RADCTMAIN 07:35
PROVIDERS: ATTEND Family Medicine
DX: I67.82 Cerebral ischemia (principal); G31.9 Degenerative disease of nervous system, unspecified; R51.9 Headache, unspecified
CPT/HCPCS: 70450

== ENCOUNTER → 2023-04-04 | Outpatient (CLI) | payer MEDICARE ==
[2023-04-04 12:42] LABS: African American GFR (CKD) 78 (>60 ml/min/1.73 sqM); Blood Urea Nitrogen 18 mg/dL (9-20); Non-African American GFR(CKD) 68 (>60 ml/min/1.73 sqM)
--- NOTE | 2023-04-04 13:33 | CT ---
EXAMINATION TYPE: CT angio chest DATE OF EXAM: 04/04/2023 COMPARISON: None HISTORY: Chest pain. CT DLP: 317.2 mGycm CONTRAST: CT chest with contrast and 3D reconstruction with MIP imaging is performed with IV Contrast, patient injected with 57ml mL of Isovue 370. Contrast-enhanced CT of the chest was performed through the course of the pulmonary arteries with jaylan g and mediastinal window settings submitted. 3D reconstruction with MIP imaging was also performed. PULMONARY ARTERIES: The pulmonary arteries and their major tributaries are patent. I do not see callie dence for sizable filling defect to suggest pulmonary embolic process. LUNGS: The lungs are clear and free of infiltrate. No evidence for atelectasis. No pulmonary nodule or mass is detected. No pleural effusion. MEDIASTINUM: Thoracic aorta is of normal caliber,however, evaluation is limited given timing of the contrast bolus. If there is concern for thoracic aortic pathology consider JOHN. Correlate clinicall y . The heart is not enlarged. No evidence for mediastinal mass. No mediastinal lymph nodes greater than 1cm. HILAR STRUCTURES: No evidence for mass. No hilar lymph nodes greater than 1 cm. UPPER ABDOMEN: No significant abnormality is seen. IMPRESSION: 1. No evidence for Pulmonary embolism at this time.
== END | disposition home or self-care (01) ==
LOC: RADCTMAIN 11:36
PROVIDERS: ATTEND Family Medicine
DX: R07.89 Other chest pain (principal)
CPT/HCPCS: 82565; 84520; 71275; 36415; Q9967

== ENCOUNTER → 2023-07-25 | Outpatient (CLI) | payer MEDICARE ==
--- NOTE | 2023-07-25 09:31 | US ---
EXAMINATION TYPE: US arterial LE single level DATE OF EXAM: 07/25/2023 8:25 AM CLINICAL INDICATION: Male, 68 years old with history of M79.672 PAIN IN LEFT FOOT; Pain left leg, com es and goes. History of: Smoker: prev Hypertension: Takes medication Diabetic: No Hyperlipidemia: No TIA/CVA: No Previous Vascular Surgery: No CAD: No DC: No Vascular Ulcers: No Claudication: No Gangrene: No Doppler Waveforms: Right: Multiphasic Left: Multiphasic Right Brachial Pressure: 151 Left Brachial Pressure: 149 Ankle-Brachial Indices: Right: 1.28 Left: 1.10 Toe Brachial Indices: Right: 0.77 Left: 0.87 IMPRESSION: Ankle-brachial indices within normal limits bilaterally.
== END | disposition home or self-care (01) ==
LOC: RADUSWWP 07:52
PROVIDERS: ATTEND Family Medicine
DX: M79.672 Pain in left foot (principal)
CPT/HCPCS: 93922

== ENCOUNTER → 2024-05-29 | Outpatient (CLI) | payer MEDICARE ==
--- NOTE | 2024-05-29 09:32 | US ---
EXAMINATION TYPE: US Aorta Screening DATE OF EXAM: 05/29/2024 COMPARISON: 04/04/2023 CLINICAL INDICATION: Male, 69 years old with history of Z13.6 ENCOUNTER FOR SCREENING FOR CARDIOVASCU LAR D; screening AAA, chest pain TECHNIQUE: Multiple sonographic images of the abdominal aorta are obtained with grayscale and color D oppler imaging. with grayscale and color Doppler imaging FINDINGS: EXAM MEASUREMENTS: Abdominal Aorta: Proximal: 2.4 x 2.3cm Mid: 1.7 x 1.9cm Distal: 1.3 x 1.6cm Bifurcation: gassed out THREAD REELER NOTES: Bowel gas limits study, no obvious aneurysm seen IMPRESSION: Ectasia of the proximal aorta no evidence for aneurysm. [facility], , 05/29/2024 9:30 AM
== END ==
LOC: RADUSWWP 07:19
PROVIDERS: ATTEND Family Medicine
DX: Z13.6 Encounter for screening for cardiovascular disorders (principal)
CPT/HCPCS: 76706